=== PATIENT | female | born 1980 | race African-American/Black ===

== ENCOUNTER 2016-10-12 15:48 | Emergency (ER) | payer BC ==
[~2016-10-12] VITALS: Ht 165.1 cm; Wt 45.8 kg
--- NOTE | 2016-10-12 16:15 | NUR ---
PT BIB [facility] S/P SYNCOPAL EPISODE TODAY. NO NEURO DEFICITS. C/O 01/24 GUZMAN WHICH HAS PERSISTED SINCE MONDAY WHEN SHE HAD ANOTHER SYNCOPAL EPISODE AND HIT HER HEAD ON THE FLOOR. RESP EVEN UNLABORED. SKIN WARM NONDIAPHORETIC. IN ER BED 12 ON MONITOR.
[2016-10-12] MEDS ORDERED: IV NS 0.9% 1,000 ML BAG IV ONE (16:30)
[2016-10-12] MEDS ORDERED: IV SET PRIMARY 1 EA INFUS.SET MC ONE (16:40)
[2016-10-12] MEDS ORDERED: IV NS 0.9% 1,000 ML ONE (16:40)
[2016-10-12 16:42] LABS: BASOPHILS % (AUTO) 0.2 % (0.0-2.0); EOSINOPHILS # (AUTO) 0.2 /CMM (0.0-0.7); EOSINOPHILS % (AUTO) 3.3 % (0.0-6.0); HEMATOCRIT 34 % (33-45); HEMOGLOBIN 11.3 g/dL (11.5-14.8); LYMPHOCYTES # (AUTO) 0.9 /CMM (0.8-4.8); LYMPHOCYTES % (AUTO) 13.8 % (20.0-44.0); MEAN CORPUSCULAR HEMOGLOBIN 29 PG (26.0-33.0); MEAN CORPUSCULAR HGB CONC 34 g/dl (31.0-36.0); MEAN CORPUSCULAR VOLUME 86 fL (82-100); MONOCYTES # (AUTO) 0.7 /CMM (0.1-1.30); MONOCYTES % (AUTO) 10.2 % (2.0-12.0); NEUTROPHILS # (AUTO) 4.9 /CMM (1.8-8.9); NEUTROPHILS % (AUTO) 72.5 % (43.0-81.0); PLATELET COUNT (AUTO) 252 /CMM (150-450); RDW COEFFICIENT OF VARIATION 13.5 (11.5-15.0); WHITE BLOOD COUNT (AUTO) 6.8 K/uL (4.3-11.0)
[2016-10-12 16:45] LABS: CALCIUM, SERUM 9.1 mg/dL (8.5-10.1); CARBON DIOXIDE 26 mmol/L (21-32); CHLORIDE 101 mmol/L (98-107); CREATININE 0.8 mg/dL (0.6-1.3); GLUCOSE 99 mg/dL (74-106); SODIUM SERUM 137 mmol/L (136-145); UREA NITROGEN, BLOOD 10 mg/dL (7-18)
[2016-10-12 16:49] LABS: INR 1.02 (0.87-1.13); PROTHROMBIN TIME 10.9 SECS (9.5-12.7)
[2016-10-12 16:51] LABS: ALANINE AMINOTRANSFERASE 85 U/L (12-78); ALBUMIN 3.3 g/dL (3.4-5.0); ALKALINE PHOSPHATASE 65 U/L (46-116); ASPARTATE AMINOTRANSFERASE 60 U/L (15-37); BILIRUBIN,DIRECT 0.1 mg/dL (0.0-0.2); BILIRUBIN,TOTAL 0.4 mg/dL (0.2-1.0); TOTAL PROTEIN, SERUM 8.1 g/dL (6.4-8.2)
--- NOTE | 2016-10-12 16:51 | NUR ---
STILL WAITING ON HCG BEFORE CT SCANS.
[2016-10-12 16:53] LABS: TROPONIN I < 0.017 ng/mL (0.00-0.056)
--- NOTE | 2016-10-12 17:42 | NUR ---
XRAY AT BEDSIDE
[2016-10-12] MEDS ORDERED: CIPR500T5 PO (17:59)
[2016-10-12] MEDS ORDERED: POTASSIUM CHLORIDE 20 MEQ TAB.PRT.SR PO ONE ×2 (18:00→18:34)
--- NOTE | 2016-10-12 18:30 | NUR ---
PAGED DR DON FOR ADMISSION
[2016-10-12] MEDS ORDERED: ACETAMINOPHEN 325 MG TABLET ONE (18:34)
--- NOTE | 2016-10-12 18:42 | NUR ---
Patient is resting comfortably in bed. NAD noted. Provided with water. Encouraged for urine sample; unable at this time. Pt continues to c/o GUZMAN. Administered tylenol 650mg po per MD verbal order.
--- NOTE | 2016-10-12 19:41 | NUR ---
PT DOES NOT CONSENT TO TRANSFER TO [facility]
--- NOTE | 2016-10-12 19:48 | NUR ---
PT NOW CONSENTS TO TRANSFER. ALL NEEDS ATTENDED TO. NAD NOTED.
[2016-10-12 19:54] LABS: APPEARANCE,URINE Clear (CLEAR); BILIRUBIN,URINE SMALL (NEGATIVE); BLOOD, URINE Trace-intact Ery/uL (NEGATIVE); COLOR,URINE Yellow (YELLOW); KETONES,URINE 40 (NEGATIVE); LEUKOCYTE ESTERASE ,URINE Small (NEGATIVE); NITRITE, URINE Negative (NEGATIVE); PROTEIN,URINE 30 mg/dl (NEGATIVE); UGLUCOSE Negative (NEGATIVE); UROBILINOGEN,URINE 0.2 EU/dL (0.2)
[2016-10-12 20:19] LABS: BACTERIA,URINE Few /HPF (None Seen); MUCUS,URINE Moderate /LPF (None Seen); SQUAMOUS EPITHELIAL CELL,UR Few /HPF (None Seen); YEAST,URINE Rare /HPF (None Seen)
[2016-10-12 20:55] VITALS: BP 109/67
--- NOTE | 2016-10-12 20:57 | NUR ---
PT TRANSPORTED TO [facility] IN STABLE CONDITION VIA ACLS PROTOCOL. NAD NOTED. VSS. Addendum: 10/12/16 at 2117 by [facility] REPORTS ADEQUATE PAIN RELIEF OF HEADACHE WITH TYLENOL ORDERED
--- NOTE | 2016-10-12 20:59 | NUR ---
INFORMED BY BROOMMAKING SUPERVISOR PT CAPITATED TO [facility]. PT INFOMED OF TRANSFER PER INSURANCE REQUEST AND AGREES TO TRANSFER. BODY JOINER INOCENCIO AND [address] CHARGE NURSE AWARE OF TRANSFER. PT TO STAY IN BED 309-2 ON [address] AND TRANSFER TO [facility] TO ACCOMODATE PT COMFORT RATHER THAN RETURN TO ER. PT WILL BE CONTINUOUSLY MONITORED BY CHARGE NURSE EDWARD.
--- NOTE | 2016-10-12 20:59 | NUR ---
PT WILL BE GOING TO [facility] VIA [facility]. IPA AUTHORIZATION NUMBER FOR TRANSPORT: [id number]
--- NOTE | 2016-10-12 21:00 | NUR ---
BEDSIDE REPORT GIVEN TO JR GALLEGOS
--- NOTE | 2016-10-12 21:25 | NUR ---
DR. GLYNN'S PHONE NUMBER
--- NOTE | 2016-10-12 21:25 | NUR ---
DR. GONZALEZ DISCUSSED CASE WITH DR. GLYNN FOR TRANSFER TO [facility] PER INSURANCE CAPITATION. PT NOT ADMITTED TO TELE FLOOR; DR. BROOKS AWARE PT IS BEING TRANSFERED AND DID NOT PLACE ANY ADMISSION ORDERS.
--- NOTE | 2016-10-12 23:01 | NUR ---
REPORT GIVEN TO GONZALO GALLEGOS FOR TRANSFER TO [facility] RM [id number]. PT SIGNED CONSENT TO TRANSFER.
--- NOTE | 2016-10-12 23:14 | NUR ---
REPORT GIVEN TO EMT FOR TRANSPORT. ALL PAPERWORK WITH FIELD OPERATIONS SUPERVISOR.
== END 2016-10-12 23:21 | disposition short-term general hospital (02) ==
LOC: ER 15:49
DX: R55 Syncope and collapse (principal); E87.6 Hypokalemia; E86.0 Dehydration; D64.9 Anemia, unspecified; R74.0 Nonspecific elevation of levels of transaminase and lactic acid dehydrogenase [LDH]
CPT/HCPCS: 36415; 70450-TC; 71010-TC; 80048-TC; 80076-TC; 81000-TC; 84484-TC; 84703-TC; 85025-TC; 85730-TC; 87086-TC; A4606; J7030; Z7610